=== PATIENT | male | born 1965 | race Caucasian/White ===

== ENCOUNTER → 2020-02-28 08:31 | Outpatient (CLI) | payer BC, SELFPAY ==
--- NOTE | 2020-02-28 08:35 | XR_ITS ---
PROCEDURE: XR HIP LT 2-3V W/PELVIS CLINICAL INDICATION: LT HIP PAIN COMPARISON: No exams were available for comparison FINDINGS: There are mild osteoarthritic changes of the left hip. No fracture or dislocation. No lytic or blastic change. Calcification is present in the lower pelvis on the left consistent with phleboliths. IMPRESSION: Mild osteoarthritis left hip Dictated by: Josse Ochoa MD 02/28/2020 16:16 Josse Ochoa MD in [place] 02/28/2020 16:16
== END ==
PROVIDERS: PCP Physician Assistant; Visit Provider Physician Assistant
DX: M25.552 Pain in left hip (principal)
CPT/HCPCS: 73502

== ENCOUNTER → 2020-03-30 09:12 | Outpatient (CLI) | payer BC, SELFPAY ==
[2020-03-30 09:26] LABS: Basophils # 0.1 K/mm3 (0-0.2); Basophils % 0.6 % (0.1-2.0); Eosinophils # 0.3 K/mm3 (0.0-0.4); Eosinophils % 2.8 % (0.1-12.0); Hematocrit 48.5 % (42.0-52.0); Hemoglobin 16.2 g/dL (14.1-18.0); Lymphocytes % 37.5 % (10-50); Mean Corpuscular HGB Conc 33.4 g/dL (31.8-35.4); Mean Corpuscular Hemoglobin 31.9 pg (27.0-31.2); Mean Corpuscular Volume 95.7 fl (80-94); Mean Platelet Volume 7.3 fl (7.4-10.4); Monocytes # 0.5 K/mm3 (0.1-1.0); Monocytes % 4.6 % (1.7-9.3); Neutrophils # 5.8 K/mm3 (1.8-7.8); Neutrophils % 54.4 % (37.0-80.0); Platelet Count 272 K/mm3 (142-424); Red Blood Count 5.07 M/mm3 (4.60-6.20); Red Cell Distribution Width 13.5 % (11.5-17.5); White Blood Count 10.7 K/mm3 (4.8-10.8)
== END ==
PROVIDERS: Visit Provider Physician Assistant
DX: R79.9 Abnormal finding of blood chemistry, unspecified (principal)
CPT/HCPCS: 36415; 85025

== ENCOUNTER 2021-04-05 09:08 | Emergency (ER) | payer BC, SELFPAY ==
[2021-04-05 10:22] VITALS: BP 112/69; PULSE 88; RESP 18; TEMP 37.2; O2SAT 16; BMI 28.1
--- NOTE | 2021-04-05 10:48 | HMH.EDUTC ---
[facility] [place] Clinical Impression: Bronchitis Sinusitis Qualifiers: Sinusitis location: unspecified location Chronicity: acute Recurrence: non-recurrent Qualified Code(s): J01.90 - Acute sinusitis, unspecified Disposition: Home, Self-Care Condition on Discharge: Good Instructions: DI for Sinusitis Additional Instructions: Drink plenty of fluids. Take tylenol or ibuprofen for pain or fever. Take the medications as directed. Follow up with your regular doctor. GO TO THE ER FOR ANY WORSENING SYMPTOMS Quarantine until you know the results of your covid-19 test. If it is positive, the health department should call you and give you further instructions about your length of Quarantine and other things. Notify your school or workplace of your results and follow their instructions regarding return to work/school. The cough medication (promethazine dm) will make you drowsy, so don't drive or operate heavy machinery after taking it. Prescriptions: Promethazine/Dextromethorphan [Promethazine-Dm Syrup] 5 ml PO Q6HP PRN #240 ml PRN Reason: Cough Transmission Status: Received by [id number] guaiFENesin [Mucinex 600mg tablet] 1 - 2 tab PO BIDP PRN #30 tab PRN Reason: Congestion Transmission Status: Received by [id number] Azithromycin [Z-Allan 250mg Tab*] 250 mg PO UD DOSE PK #6 tab Transmission Status: Received by [id number] Referrals: Provider,Referral, MD [Primary Care Provider] - Time of Disposition: 11:30 Medical Decision Making - Medical Records Medical records reviewed: No: I reviewed the patient's medical records. - [place] Inquiry Pt receiving controlled substance: No Vital Signs: 04/05/21 10:22 04/05/21 11:23 Temperature 99 F 99 F Temperature Source Oral Pulse Rate 88 Pulse Rate [Left] 88 Respiratory Rate 18 18 Blood Pressure 112/69 Blood Pressure [Right Arm] 112/69 Blood Pressure Mean [Right Arm] 83 02 Sat by Pulse Oximetry 16 L - Lab Data Lab results reviewed: Yes: I reviewed the patient's lab results. Lab Results 04/05/21 11:33: Chlamy pneumoniae PCR Not detected, Adenovirus (PCR) Not detected, B. pertussis DNA (PCR) Not detected, Coronavirus OC43 (PCR) Not detected, Coronavirus HKU1 (PCR) Not detected, Coronavirus 229E (PCR) Not detected, SARS-CoV-2 (PCR) Not detected, Coronavirus NL63 (PCR) Not detected, Human Metapneumovir PCR Not detected, Influenza A (H1) PCR Not detected, Influ A (H1N1/09) PCR Not detected, Influenza A (H3) PCR Not detected, Influenza Type A (PCR) Not detected, Influenza Type B (PCR) Not detected, M. pneumoniae (PCR) Not detected, Parainfluenza 1 (PCR) Not detected, Parainfluenza 2 (PCR) Not detected, Parainfluenza 3 (PCR) Not detected, Parainfluenza 4 (PCR) Not detected, RSV (PCR) Not detected, Entero/Rhino (PCR) Detected A Orders (Tests/Meds): ED MEDICATIONS Discontinued Medications Generic Name Dose Route Start Last Admin Trade Name Freq PRN Reason Stop Dose Admin Ceftriaxone Sodium 1 gm 04/05/21 11:02 04/05/21 11:22 Ceftriaxone 1gm Vial IM 04/05/21 11:03 1 gm ONCE ONE Administration Dexamethasone Sodium Phosphate 8 mg 04/05/21 11:02 04/05/21 11:20 Dexamethasone 4mg/Ml 1ml Vial IM 04/05/21 11:03 8 mg ONCE ONE Administration Lidocaine HCl 0 ml 04/05/21 11:02 04/05/21 11:21 Lidocaine 1% 5ml Pf Vial IM 04/05/21 11:03 2 ml ONCE ONE Administration [facility] [place] - General Stated complaint: sinus and cough Time Seen by Provider: 04/05/21 10:49 Mode of Arrival: Ambulatory Source of Information: Patient Limitations: No Limitations Description of Symptoms (Recalled from Triage Doc. by RN): pt c/o nasal/chest congestion, fever, and a productive cough x1 week. HEENT Symptoms (Recalled from RN notes): Yes (nasal congestion) Resp Symptoms (Recalled from RN notes): Yes (productive cough and chest congestion) Skin Symptoms (Recalled from RN notes): No MS Symptoms (Recalled fr
[2021-04-05 11:23] VITALS: BP 112/69; PULSE 88; RESP 18; TEMP 37.2
[2021-04-05 12:07] LABS: Adenovirus,PCR Not Detected (NotDetected); Bordetella Pertussis Not Detected (NotDetected); Chlamydophila Pneumoniae, PCR Not Detected (NotDetected); Coronavirus 19, PCR Not Detected (NotDetected); Coronavirus 229E Not Detected (NotDetected); Coronavirus NL63 Not Detected (NotDetected); Coronavirus OC43 Not Detected (NotDetected); Coronovirus HKU1,PCR Not Detected (NotDetected); Human Metapneumovirus Not Detected (NotDetected); Influenza A, PCR Not Detected (NotDetected); Influenza AH1, 2009 Not Detected (NotDetected); Influenza AH1, PCR Not Detected (NotDetected); Influenza AH3,PCR Not Detected (NotDetected); Influenza B, PCR Not Detected (NotDetected); Mycoplasma Pneumoniae, PCR Not Detected (NotDetected); Parainfluenza 1, PCR Not Detected (NotDetected); Parainfluenza 2, PCR Not Detected (NotDetected); Parainfluenza 3, PCR Not Detected (NotDetected); Parainfluenza 4, PCR Not Detected (NotDetected); Respiratory Syncytial Virus Not Detected (NotDetected)
[2021-04-05 15:32] LABS: Rhinovirus/Enterovirus Detected (NotDetected)
== END 2021-04-05 11:36 | disposition home or self-care (01) ==
LOC: UTC 09:14
PROVIDERS: Emergency Provider Nurse Practitioner Family
DX: J01.90 Acute sinusitis, unspecified (principal); E78.5 Hyperlipidemia, unspecified; F17.210 Nicotine dependence, cigarettes, uncomplicated
CPT/HCPCS: 87581; 87632; 87798; 96372; 99202; C9803; G0463; U0003; U0005

== ENCOUNTER → 2021-07-10 15:09 | Outpatient (CLI) | payer BC, SELFPAY ==
--- NOTE | 2021-07-10 15:14 | CT_ITS ---
FINAL REPORT CLINICAL HISTORY: H/O NICOTINE DEPENDENCE 1 PPD X 40 YEARS FINDINGS: Low-Dose Chest CT CTDI vol (mGy): 2.90 DLP (mGy-cm): 96.38 Axial images were obtained from the lung apex to the mid abdomen by computed tomography. Low-dose protocol was utilized. FINDINGS: CHEST: There is no axillary adenopathy. There is no hilar adenopathy. There are a few small scattered mediastinal lymph nodes which are not significantly enlarged. The heart is proper size. There is no pericardial or pleural effusion. Limited images of the upper abdomen are unremarkable. Lung window images demonstrate multiple small noncalcified nodules bilaterally, particularly in the periphery of the upper lobes. There is a 3 mm nodule in the right upper lobe seen on image 17 of series 4. There are other tiny nodules bilaterally. IMPRESSION: Lung RADS category 2. Recommend 12 month follow-up low-dose chest CT. Reviewed, Interpreted and Dictated by Lopez Mcgrath MD Transcribed by Madie Hanley Authenticated by Lopez Mcgrath MD on 07/10/2021 04:38:41 PM [facility]
== END ==
PROVIDERS: PCP Internal Medicine Adolescent Medicine; Visit Provider Internal Medicine Adolescent Medicine
DX: Z87.891 Personal history of nicotine dependence (principal); Z12.2 Encounter for screening for malignant neoplasm of respiratory organs
CPT/HCPCS: 71271

== ENCOUNTER 2022-01-16 18:51 | Emergency (ER) | payer BC, SELFPAY ==
[2022-01-16 19:18] VITALS: BP 122/71; PULSE 76; RESP 19; TEMP 36.8; O2SAT 99; BMI 28.5
--- NOTE | 2022-01-16 19:34 | EXP.UTC ---
Discharge Plan Disposition Patient Disposition: Home, Self-Care Condition: Good Prescriptions Prescriptions: New amoxicillin-pot clavulanate 875-125 mg Tablet 1 tab PO Q12H 10 Days Qty: 20 0RF ofloxacin 0.3 % drops 10 drp otic (ear) DAILY 7 Days Qty: 10 0RF No Action atorvastatin 20 mg tablet PO 30 Days Qty: 30 Label Comments: tadalafil 5 mg tablet 5 mg PO DAILY promethazine-DM 120 ML syrup 5 ml PO Q6HP PRN (Reason: Cough) Qty: 240 0RF azithromycin 250 MG tablet 250 mg PO UD DOSE PK Qty: 6 0RF Rx Instructions: Take two (2) tablets today, then one (1) tablet days #2 thru #5 guaifenesin 600 MG tablet extended release 12hr 1 - 2 tab PO BIDP PRN (Reason: Congestion) Qty: 30 0RF Referrals Follow up/Referrals: Provider,Referral, MD [Primary Care Provider] - See instructions Activity Restrictions/Add. Instructions Additional Instructions/Restrictions: *Monitor Temp, Over the counter Motrin or Tylenol as directed/as needed Tylenol every 4 hours and Motrin every 6 hours (as long as your family doctor has told you that you can take it) for fever or pain. and straight to ER if unable to lower temp less than 101.0 after medication given *Warm salt water gargles may help to soothe the throat *Throat Lozenges? *Warm fluids like tea with honey may help to soothe the throat? *Sleep elevated *Humidifier/Vaporizer Take medication as prescribed Return if needed Start oral antibitoics tomorrow Follow up IMMEDIATELY for new or worsening symptoms or no Noticeable improvement over the next 48-72 hours. 911 for difficulty breathing or swallowing Clinical Impressions Clinical Impression: Sinusitis Qualifiers: Sinusitis location: unspecified location Chronicity: unspecified Qualified Code(s): J32.9 - Chronic sinusitis, unspecified Otitis externa Qualifiers: Otitis externa type: unspecified type Chronicity: unspecified Laterality: left Qualified Code(s): H60.92 - Unspecified otitis externa, left ear Instructions Patient Instructions: Sinusitis, DI for Sinusitis Discharge ED Provider: Eugenia AvilaH UTC HPI General Stated complaint: Sosre throat,sneezing Mode of Arrival: Ambulatory Source of Information: Patient Limitations: No Limitations Time Seen by Provider: 01/16/22 19:34 Description of Symptoms (Recalled from Triage Doc. by RN): c/o sinus pressure, sore throat, cough x10 days HEENT Symptoms (Recalled from RN notes): Yes (sore throat, sinus pressure) Resp Symptoms (Recalled from RN notes): Yes (cough) Skin Symptoms (Recalled from RN notes): No MS Symptoms (Recalled from RN notes): No Functional Status (Recalled from RN notes): n/a History of Present Illness Provider Complaint: Patient states that he thinks he has a bad sinus infection that is now moving into his left ear States that he has been having sinus pain and pressure along with cough, pain and pressure in his left ear and now starting to have pain when he touches the ear like he may be getting an external ear infection States that today he was not feeling any better and felt like it may be trying to move into his chest so he came in Related Data Home Medications Medication Instructions Recorded Confirmed atorvastatin 20 mg tablet PO 30 days ##30 05/26/17 05/18/19 tadalafil 5 mg tablet 5 mg PO DAILY 05/18/19 05/18/19 Previous Rx's Medication Instructions Recorded azithromycin 250 mg tablet 250 mg PO UD DOSE PK #6 tabs 04/05/21 guaifenesin 600 mg tablet, 1 - 2 tab PO BIDP PRN Congestion 04/05/21 extended release 12 hr #30 tabs promethazine-DM 6.25 mg-15 mg/5 mL 5 ml PO Q6HP PRN Cough #240 mL 04/05/21 oral syrup amoxicillin 875 mg-potassium 1 tab PO Q12H 10 days #20 tabs 01/16/22 clavulanate 125 mg tablet ofloxacin 0.3 % ear drops 10 drp otic (ear) DAILY 7 days #10 01/16/22 mL Allergies Allergy/AdvReac Type Severity Reaction Status Date / Time gemfibrozil Allerg
[2022-01-16 20:07] VITALS: BP 122/71; PULSE 76; RESP 19; TEMP 36.8; O2SAT 99
== END 2022-01-16 20:08 | disposition home or self-care (01) ==
PROVIDERS: Emergency Provider Nurse Practitioner
DX: J32.9 Chronic sinusitis, unspecified (principal); H60.92 Unspecified otitis externa, left ear; J02.9 Acute pharyngitis, unspecified; R05.9 Cough, unspecified; F17.210 Nicotine dependence, cigarettes, uncomplicated; Z79.899 Other long term (current) drug therapy; Z88.8 Allergy status to other drugs, medicaments and biological substances
CPT/HCPCS: 96372; 99213; G0463; J0696

== ENCOUNTER 2022-08-02 15:14 | Emergency (ER) | payer BC, SELFPAY ==
[2022-08-02 15:30] VITALS: BP 107/69; PULSE 93; RESP 18; TEMP 36.6; O2SAT 98; BMI 28.3
--- NOTE | 2022-08-02 16:01 | EXP.UTC ---
Discharge Plan Disposition Patient Disposition: Home, Self-Care Condition: Good Prescriptions Prescriptions: New guaifenesin [Mucinex] 600 mg tablet extended release 12hr 600 - 1,200 mg PO BID PRN (Reason: cough) Qty: 20 0RF azithromycin [Zithromax Z-Allan] 250 mg tablet See Rx Instructions .ROUTE .COMPLEX 5 Days Qty: 6 0RF Rx Instructions: For 250 mg dose pack: take 500 mg today (day 1), then 250 mg for 4 days (days 2-5) No Action atorvastatin 20 mg tablet PO 30 Days Qty: 30 Label Comments: tadalafil 5 mg tablet 5 mg PO DAILY promethazine-DM 120 ML syrup 5 ml PO Q6HP PRN (Reason: Cough) Qty: 240 0RF azithromycin 250 MG tablet 250 mg PO UD DOSE PK Qty: 6 0RF Rx Instructions: Take two (2) tablets today, then one (1) tablet days #2 thru #5 guaifenesin 600 MG tablet extended release 12hr 1 - 2 tab PO BIDP PRN (Reason: Congestion) Qty: 30 0RF amoxicillin-pot clavulanate 875-125 mg Tablet 1 tab PO Q12H 10 Days Qty: 20 0RF ofloxacin 0.3 % drops 10 drp otic (ear) DAILY 7 Days Qty: 10 0RF Referrals Follow up/Referrals: Leanne Najera APRN [Primary Care Provider] - See instructions Activity Restrictions/Add. Instructions Additional Instructions/Restrictions: *Monitor Temp, Over the counter Motrin or Tylenol as directed/as needed Tylenol every 4 hours and Motrin every 6 hours (as long as your family doctor has told you that you can take it) for fever or pain. and straight to ER if unable to lower temp less than 101.0 after medication given *Warm salt water gargles may help to soothe the throat *Throat Lozenges? *Warm fluids like tea with honey may help to soothe the throat? *Sleep elevated *Humidifier/Vaporizer Follow up IMMEDIATELY for new or worsening symptoms or no Noticeable improvement over the next 48-72 hours. 911 for difficulty breathing or swallowing Clinical Impressions Clinical Impression: Sinusitis Qualifiers: Sinusitis location: unspecified location Chronicity: unspecified Qualified Code(s): J32.9 - Chronic sinusitis, unspecified Instructions Patient Instructions: Sinusitis, DI for Sinusitis Discharge ED Provider: Eugenia Avila [facility] General Stated complaint: possible sinus infection, headache, chest congesti Mode of Arrival: Ambulatory Source of Information: Patient Limitations: No Limitations Time Seen by Provider: 08/02/22 16:01 Description of Symptoms (Recalled from Triage Doc. by RN): PATIENT C/O SINUS PRESSURE, YELLOW NASAL DRAINAGE, AND COUGH WITH YELLOW SPUTUM SINCE WEDNESDAY HEENT Symptoms (Recalled from RN notes): Yes Resp Symptoms (Recalled from RN notes): Yes Skin Symptoms (Recalled from RN notes): No MS Symptoms (Recalled from RN notes): No Functional Status (Recalled from RN notes): WNL History of Present Illness Provider Complaint: Patient states that he feels like he has a bad sinus infection, States that he is having pain and pressure in his sinuses and behind his eyes and feels like it is draining in his throat making him cough States that at times he will cough up the drainage and it is thick yellowish green color like he is blowing from his nose Related Data Home Medications Medication Instructions Recorded Confirmed atorvastatin 20 mg tablet PO 30 days ##30 05/26/17 05/18/19 tadalafil 5 mg tablet 5 mg PO DAILY 05/18/19 05/18/19 Previous Rx's Medication Instructions Recorded azithromycin 250 mg tablet 250 mg PO UD DOSE PK #6 tabs 04/05/21 guaifenesin 600 mg tablet, 1 - 2 tab PO BIDP PRN Congestion 04/05/21 extended release 12 hr #30 tabs promethazine-DM 6.25 mg-15 mg/5 mL 5 ml PO Q6HP PRN Cough #240 mL 04/05/21 oral syrup amoxicillin 875 mg-potassium 1 tab PO Q12H 10 days #20 tabs 01/16/22 clavulanate 125 mg tablet ofloxacin 0.3 % ear drops 10 drp otic (ear) DAILY 7 days #10 01/16/22 mL azithromycin 250 mg tablet See Rx Instructions PO .COMPLEX 5 08/02/22 (Erickt
[2022-08-02 16:56] VITALS: BP 107/69; PULSE 93; RESP 18; TEMP 36.6; O2SAT 98
== END 2022-08-02 17:00 | disposition home or self-care (01) ==
PROVIDERS: Emergency Provider Nurse Practitioner; PCP Nurse Practitioner Family
DX: J01.90 Acute sinusitis, unspecified (principal); R51.9 Headache, unspecified; F17.210 Nicotine dependence, cigarettes, uncomplicated
CPT/HCPCS: 96372; 99212; 99214; G0463; J0696

== ENCOUNTER → 2022-08-13 14:47 | Outpatient (CLI) | payer BC, SELFPAY ==
--- NOTE | 2022-08-13 14:50 | CT_ITS ---
FINAL REPORT TECHNIQUE: Axial CT images of the chest were obtained without contrast. Low-dose protocol was utilized. This study was performed with techniques to keep radiation doses as low as reasonably achievable (ALARA). Individualized dose reduction techniques using automated exposure control or adjustment of mA and/or kV according to the patient's size were employed. CLINICAL HISTORY: SMOKER, 1 PK PER DAY X 35 YRS COMPARISON: 07/10/2021 FINDINGS: CT CHEST WITHOUT, LOW DOSE SCREENING CT Di Vol: 2.90 mGy DLP: 111.77 mGy*cm There are small mediastinal nodes and small axillary nodes. There are moderate coronary artery calcifications. The heart size is normal. There is no pleural or pericardial effusion. The lung windows show a 2 mm lateral left upper lobe nodule is seen on image 32. The small lateral right upper lobe nodule seen on prior exam is not visualized on today's study. There are several other less than 5 mm nodules which are visually stable. No new mass or nodule. There is mild emphysema and mild scarring. Limited images of the upper abdomen demonstrate presumed partial calcification at the fundus of the gallbladder versus gallstone. Gallbladder ultrasound may be helpful. IMPRESSION: 2 mm left upper lobe nodule. Other nodules are visually stable. LR Category 2: 12 month follow-up low-dose chest CT is recommended. Reviewed, Interpreted and Dictated by Johnnie Cheema III, MD Transcribed by Ondina Jon Authenticated and [facility]
== END ==
PROVIDERS: PCP Nurse Practitioner Family; Visit Provider Nurse Practitioner Family
DX: Z87.891 Personal history of nicotine dependence (principal); Z12.2 Encounter for screening for malignant neoplasm of respiratory organs
CPT/HCPCS: 71271

== ENCOUNTER 2023-09-24 06:58 | Outpatient (CLI) | payer BC, SELFPAY ==
[2023-09-24 07:15] LABS: Basophils # 0.1 K/mm3 (0-0.2); Eosinophils # 0.2 K/mm3 (0.0-0.4); Eosinophils % 2.1 % (0.1-12.0); Hematocrit 48.2 % (42.0-52.0); Lymphocytes # 3.8 K/mm3 (0.7-4.5); Lymphocytes % 32.8 % (10-50); Mean Corpuscular HGB Conc 33.1 g/dL (31.8-35.4); Mean Corpuscular Hemoglobin 32.3 pg (27.0-31.2); Mean Corpuscular Volume 97.4 fl (80-94); Mean Platelet Volume 7.6 fl (7.4-10.4); Monocytes # 0.6 K/mm3 (0.1-1.0); Monocytes % 4.8 % (1.7-9.3); Neutrophils # 6.9 K/mm3 (1.8-7.8); Neutrophils % 59.3 % (37.0-80.0); Platelet Count 259 K/mm3 (142-424); Red Blood Count 4.95 M/mm3 (4.60-6.20); Red Cell Distribution Width 13.8 % (11.5-17.5); White Blood Count 11.6 K/mm3 (4.8-10.8)
[2023-09-24 10:23] LABS: Chloride 107 mmol/L (98-107); Potassium 4.4 mmoL/L (3.5-5.1); Sodium 141 mmol/L (136-145)
[2023-09-24 10:26] LABS: Alanine Aminotransferase 73 U/L (12-78); Albumin Level 4.2 g/dl (3.5-5.0); Albumin/Globulin Ratio 1.8 (1.1-1.8); Alkaline Phosphatase 62 U/L (38-126); Anion Gap 13.4 mEq/L (5-15); Aspartate Amino Transferase 53 U/L (17-59); Bilirubin,Total 0.6 mg/dl (0.2-1.3); Blood Urea Nitrogen 14 mg/dl (9-20); Calcium 9.4 mg/dl (8.4-10.2); Carbon Dioxide 25 mmol/L (22.0-30.0); Cholesterol 126 mg/dl (140-200); Estimated Glomerular Filt Rate 99 ml/min (>60); GFR (African American) 119 ML/MIN (>60); Globulin 2.4 g/dL (1.3-3.2); Glucose 108 mg/dl (74-100); Total Protein,Serum 6.6 g/dl (6.3-8.2); Triglycerides 155 mg/dl (30-150); VLDL Cholesterol 31 mg/dL (0-40)
[2023-09-24 10:27] LABS: Chol/HDL Ratio 4.7 (1-3.5); HDL Cholesterol 27 mg/dl (40-60)
[2023-09-24 14:11] LABS: Prostate Specific Ag Screen 0.9 ng/ml (0.0-4.0)
== END 2023-09-24 23:59 | disposition home or self-care (01) ==
LOC: LAB 06:58
PROVIDERS: PCP Internal Medicine Adolescent Medicine; Visit Provider Nurse Practitioner Family
DX: E78.2 Mixed hyperlipidemia (principal); N40.1 Benign prostatic hyperplasia with lower urinary tract symptoms
CPT/HCPCS: 36415; 80053; 80061; 85025; G0103

== ENCOUNTER 2023-09-29 07:13 | Outpatient (CLI) | payer BC, SELFPAY ==
--- NOTE | 2023-09-29 07:16 | CT_ITS ---
FINAL REPORT TECHNIQUE: Thin section axial images were obtained from the lung apices to the upper abdomen by computed tomography. Reformatted images were obtained and reviewed. This study was performed with techniques to keep radiation doses al low as reasonably achievable (ALARA). Individualized dose reduction techniques using automated exposure control or adjustment of mA and/or kV according to the patient's size were employed. CLINICAL HISTORY: H/O TOBACCO USE COMPARISON: 08/13/2022 FINDINGS: CHEST CT LOW DOSE CTDI vol (mGy): 2.90 DLP (mGy-cm): 96.38 There is no axillary adenopathy. There is no mediastinal or hilar mass or adenopathy. The heart is normal in size. There are mild coronary artery calcifications. There is no pericardial or pleural effusion. Lung window images demonstrate several less than 5 mm bilateral pulmonary nodules including a 2 mm lateral left upper lobe nodule on image 26 which is stable. There is a new 4 mm pleural-based right lower lobe nodule on image 38. Calcified granuloma is noted in the left upper lobe.. Limited images of the upper abdomen are unremarkable. IMPRESSION: Lung-RADS category 3. Recommend 6 month follow up low dose chest CT. Reviewed, Interpreted and Dictated by Johnnie Cheema III, MD Transcribed by Ondina Jon Authenticated and [facility]
== END 2023-09-29 23:59 | disposition home or self-care (01) ==
LOC: RAD 07:13
PROVIDERS: PCP Nurse Practitioner Family; Visit Provider Nurse Practitioner Family
DX: F17.200 Nicotine dependence, unspecified, uncomplicated (principal)
CPT/HCPCS: 71271

== ENCOUNTER 2024-03-29 14:27 | Outpatient (CLI) | payer BC, SELFPAY ==
--- NOTE | 2024-03-29 14:30 | CT_ITS ---
FINAL REPORT TECHNIQUE: Axial CT images were performed from the lung apices through the upper abdomen. Coronal and sagittal reformats were submitted. This study was performed with techniques to keep radiation doses as low as reasonably achievable (ALARA). Individualized dose reduction techniques using automated exposure control or adjustment of mA and/or kV according to the patient's size were employed. CLINICAL HISTORY: PULMONARY MASS COMPARISON: 09/29/2023 LDCT FINDINGS: CT CHEST WITHOUT CONTRAST There is no axillary adenopathy. There is no hilar or mediastinal mass or adenopathy. Heart size is normal. Mild vascular calcifications are present. There is no pericardial or pleural effusion. Mild changes of emphysema and mild scarring are present. Multiple less than 5 mm in size pulmonary nodules are once again identified. The previously noted right lower lobe nodule that measured 4 mm in September now measures 2 mm, best seen in series 2 image #37, likely inflammatory. No new masses or nodules are identified. IMPRESSION: Previously noted 4 mm nodule in the right lower lobe measures 2 mm in diameter on today's examination as described above. Recommend resuming LDCT in 12 months for continued follow-up. Reviewed, Interpreted and Dictated by Johnnie Cheema III, MD Transcribed by Siomara Oliveros Authenticated and [facility]
== END 2024-03-29 23:59 | disposition home or self-care (01) ==
LOC: RAD 14:28
PROVIDERS: PCP Nurse Practitioner Family; Visit Provider Nurse Practitioner Family
DX: R91.8 Other nonspecific abnormal finding of lung field (principal)
CPT/HCPCS: 71250

== ENCOUNTER 2024-11-06 10:36 | Day surgery (SDC) | payer BC, SELFPAY ==
[2024-11-06 11:06] VITALS: BP 142/78; PULSE 75; RESP 16; TEMP 36.4; O2SAT 98; BMI 30.4
--- NOTE | 2024-11-06 12:13 | P.OP_ITS ---
Date of procedure: 11/06/24 Pre-op Diagnosis:: Left proximal medial thigh cyst Post-op Diagnosis:: Same Procedure performed:: Excision of left proximal medial thigh cyst (excisional length 3 cm) with intermediate complexity closure Surgeon:: Johnnie Hurd MD Anesthesia: local Estimated blood loss (mL): 10 Clinical Note:: Patient is a 59-year-old referred for cyst on the left medial thigh. He has worked in the medical field for decades. He retired from the [employer] a couple of years ago. He states that for about 1 year he has had intermittent flareup of a cystlike area in the left groin proximal thigh. He previously had hidradenitis but this is different. Currently it is at baseline where it is not inflamed but there is a palpable nodule. In the left medial proximal thigh area near the groin area there is some minor skin changes with palpable underlying cystlike lesion. This is somewhat irregular. I do feel would be reasonable for excision given its repeated inflammation. I advised this being done under some anesthesia. However the patient strongly wished to have this done under local anesthetic. Given its location, size, and depth if this is done under local anesthesia I scheduled it to be done in the operating room for better control and lighting. . Operative findings:: Consistent with previously ruptured sebaceous cyst with extensive scarring and ill-defined boundaries. . Operative note:: Consent was obtained. Patient was taken the operating room. He was positioned on the OR table. The area was exposed in position. It was prepped and draped in the standard surgical fashion. Boundaries of the lesion were marked with a skin marker for planned crescent shaped elliptical incision. Local anesthetic was infiltrated superficially and then deeply. Skin incision was performed. There is evidence of underlying fibrosis and probable findings consistent with a ruptured previously inflamed cyst with fibrosis and scarring. Mostly sharp dissection was carried out excising the skin ellipse with the underlying tissue to normal subcutaneous tissues as best as possible. This was sent off as a specimen. Hemostasis was achieved with electrocautery. Wound was irrigated. Dermal tissues were reapproximated with several interrupted 3-0 Vicryl. Skin was closed with interrupted 3-0 nylon. Clean dry sterile dressing was applied. . Condition: stable Disposition: other Complications:: None immediately apparent.
== END 2024-11-06 12:28 | disposition home or self-care (01) ==
PROVIDERS: PCP Nurse Practitioner Family; Visit Provider Surgery
PROC: (CPT 11403; principal; 2024-11-06 11:45)
DX: L72.8 Other follicular cysts of the skin and subcutaneous tissue (principal); L02.416 Cutaneous abscess of left lower limb; E78.00 Pure hypercholesterolemia, unspecified; F17.210 Nicotine dependence, cigarettes, uncomplicated; Z88.8 Allergy status to other drugs, medicaments and biological substances; Z79.899 Other long term (current) drug therapy
CPT/HCPCS: 11403; 12032

== ENCOUNTER 2025-03-19 15:12 | Outpatient (CLI) | payer BC, SELFPAY ==
[2025-03-19 21:27] LABS: Coronavirus 19, PCR Not Detected (NotDetected); Influenza A, PCR Not Detected (NotDetected); Influenza B, PCR Not Detected (NotDetected)
== END 2025-03-19 23:59 | disposition home or self-care (01) ==
LOC: LAB.DROPOF 03-20 13:57
PROVIDERS: PCP Nurse Practitioner Family; Visit Provider Nurse Practitioner
DX: J06.9 Acute upper respiratory infection, unspecified (principal)
CPT/HCPCS: 87631